=== PATIENT | male | born 1970 | race Caucasian/White ===

== ENCOUNTER → 2023-10-18 13:15 | Outpatient (CLI) | payer OTHER, SELFPAY | PROVIDERS: PCP Family Medicine; Visit Provider Specialist | DX: N40.1 Benign prostatic hyperplasia with lower urinary tract symptoms (principal); N13.8 Other obstructive and reflux uropathy; R97.20 Elevated prostate specific antigen [PSA]; N52.9 Male erectile dysfunction, unspecified | CPT/HCPCS: 51798; 81002; 87086; 99215 ==

== ENCOUNTER → 2023-12-17 07:13 | Outpatient (CLI) | payer OTHER, SELFPAY ==
--- NOTE | 2023-12-17 07:14 | DI.MRI.S_ITS ---
PROCEDURE: MR PELVIC PROSTATE PROTOCOL INDICATIONS: Elevated prostate specific antigen [PSA] TECHNIQUE: Coronal HASTE, axial T1 FSE with fat saturation, 3-plane nonbreath-hold T2 FSE. After the administration of contrast, dynamic axial, delayed axial and coronal VIBE or 2-D FLASH with fat saturation through the pelvis. Diffusion weighted imaging and ADC was performed. COMPARISON: None. FINDINGS: Image quality: Diffusion weighted and dynamic contrast enhanced images are diagnostic. Prostate: Gland size is 4.9 x 4.1 x 3.8 cm; ellipsoid gland volume is 40 mL. No significant foci of intrinsic T1 hyperintensity to suggest hemorrhage. Multiple BPH nodules. Lesion 1: Location: Right mid gland transitional zone, on axial series 5, image 14 and sagittal series 7, image 11. Size: 0.9 x 0.6 cm, (5/14). T2W signal: Hypointense. DWI signal: Heterogeneous ADC signal: Heterogeneous Enhancement: No Extracapsular extension: No. No neurovascular involvement. PI-RADS score: 3 Lesion 2: Location: Right mid gland transitional zone, on axial series 5, image 13 and sagittal series 7, image 10. Size: 1.2 x 1 cm, (5/13). T2W signal: Hypointense. DWI signal: Heterogeneous ADC signal: Heterogeneous Enhancement: No Extracapsular extension: No. No neurovascular involvement. PI-RADS score: 3. This could represent a BPH nodule. Lesion 3: Location: Right apex peripheral zone, on axial series 5, image 15 and sagittal series 7, image 10. Size: 0.6 x 0.6 cm, (5/15). T2W signal: Hypointense. DWI signal: Heterogeneous ADC signal: Heterogeneous Enhancement: No Extracapsular extension: No. No neurovascular involvement. PI-RADS score: 3. Genitourinary system: Bladder wall thickness is normal. Distal ureters are non distended. Bowel and peritoneum: No pathologic free pelvic fluid. Inferior colon and small bowel loops are normal in caliber. Nodes and vessels: No pelvic or inguinal adenopathy by size criteria. Iliac vessels are normal in caliber. Soft tissues: No inguinal hernias. Bones: Marrow demonstrates normal overall signal, without lesions to suggest metastases. IMPRESSION: 1. Prostatomegaly. 2. No PI-RADS 4 or 5 observations. A few PI-RADS 3 observations described above. 3. No enlarged lymph nodes. Dictated by: Jose Martin Dickens M.D. on 12/19/2023 at 13:23 Approved by: Jose Martin Dickens M.D. on 12/19/2023 at 13:34
== END ==
PROVIDERS: PCP Family Medicine; Referring Provider Specialist; Visit Provider Specialist
DX: N40.0 Benign prostatic hyperplasia without lower urinary tract symptoms (principal); R97.20 Elevated prostate specific antigen [PSA]
CPT/HCPCS: 72197; A9579

== ENCOUNTER → 2024-10-03 11:36 | Outpatient (CLI) | payer OTHER, SELFPAY | PROVIDERS: PCP Family Medicine; Visit Provider Urology | DX: N40.1 Benign prostatic hyperplasia with lower urinary tract symptoms (principal); N13.8 Other obstructive and reflux uropathy; R97.20 Elevated prostate specific antigen [PSA] | CPT/HCPCS: 87086 ==